=== PATIENT | female | born 1985 | race Caucasian/White ===

== ENCOUNTER → 2023-08-23 | Outpatient (RCR) | payer OTHER ==
[~2023-08-23] MED LIST: MOTRIN 800800 MG/TAB PO; NATURAL IRON65 MG; PRENATAL TABLET PO; PRIL40 PO
== END ==
LOC: WSOH
DX: M79.662 Pain in left lower leg (principal); Y99.0 Civilian activity done for income or pay

== ENCOUNTER 2023-09-11 15:17 | Outpatient (RCR) | payer OTHER | END 2023-09-21 | LOC: WSOH | DX: S86.112D Strain of other muscle(s) and tendon(s) of posterior muscle group at lower leg level, left leg, subsequent encounter (principal); M79.662 Pain in left lower leg; Y99.0 Civilian activity done for income or pay ==